=== PATIENT | male | born 1990 | race Caucasian/White ===

== ENCOUNTER 2021-10-18 06:13 | Emergency (ER) | payer SELFPAY ==
[~2021-10-18] VITALS: Ht 177.8 cm; Wt 77.3 kg
[2021-10-18 06:35] VITALS: BP 132/100
== END 2021-10-18 06:42 ==
LOC: ER 06:14
DX: Z13.89 Encounter for screening for other disorder (principal); Z72.89 Other problems related to lifestyle
CPT/HCPCS: 99283